=== PATIENT | male | born 1940 | race Caucasian/White ===

== ENCOUNTER 2018-03-17 11:55 | Observation (INO) | payer MEDICARE ==
[~2018-03-17] VITALS: Ht 180.3 cm; Wt 75.6 kg
[~2018-03-17 11:55] MED LIST: ACET325T14 PO; APIX5TAB PO
[2018-03-17] MEDS: SODIUM CHLORIDE 0.9% 1,000 ML IV SCH ×2 (13:51→21:51)
[2018-03-17 14:27] LABS: BASOPHILS # (AUTO) 0.03 x10^3/uL (0-0.1); BASOPHILS % (AUTO) 0 % (0-1); EOSINOPHILS # (AUTO) 0.17 x10^3/uL (0-0.4); EOSINOPHILS % (AUTO) 2 % (1-7); LYMPHOCYTES # (AUTO) 2.48 x10^3/uL (1-3.4); LYMPHOCYTES % (AUTO) 32 % (22-44); MD NO; MEAN CORPUSCULAR HEMOGLOBIN 31.5 pg (27.5-34.5); MEAN CORPUSCULAR HGB CONC 34.3 g/dL (33.2-36.2); MEAN CORPUSCULAR VOLUME 91.9 fL (81-97); MEAN PLATELET VOLUME 7.9 fL (7.4-10.4); MONOCYTES # (AUTO) 0.56 x10^3/uL (0.2-0.8); MONOCYTES % (AUTO) 7 % (2-9); NEUTROPHILS # (AUTO) 4.63 x10^3/uL (1.8-6.8); NEUTROPHILS % (AUTO) 59 % (42-75); PLATELET COUNT 194 x10^3/uL (130-400); RED BLOOD COUNT 5.33 x10^6/uL (4.38-5.82); RED CELL DISTRIBUTION WIDTH 12.9 % (9.4-14.8)
[2018-03-17 14:32] VITALS: BP 141/83
[2018-03-17 14:34] LABS: ANION GAP 2 mmol/L (5-15); CALCIUM 9.2 mg/dL (8.5-10.1); CHLORIDE 104 mmol/L (98-107); CREATININE 1.06 mg/dL (0.7-1.3)
[2018-03-17] MEDS ORDERED: No medications (14:36)
[2018-03-17] MEDS ORDERED: CEFAZOLIN 1,000 MG ONE (14:49)
[2018-03-17] MEDS ORDERED: LIDOCAINE/PF 1%, 30ML ONE (14:49)
[2018-03-17] MEDS ORDERED: MIDAZOLAM 1 MG/ML, 2ML ONE ×2 (14:49→14:58)
[2018-03-17] MEDS ORDERED: CEFAZOLIN PMX 1GM/50ML 50 ML ONE (14:49)
[2018-03-17] MEDS ORDERED: FENTANYL PF 100 MCG/2ML ONE (14:49)
[2018-03-17] MEDS ORDERED: CEFAZOLIN PMX 1GM/50ML 50 ML IVPB ONE (15:30)
[2018-03-17] MEDS ORDERED: ACETAMINOPHEN 325 MG TABLET PO PRN (16:30)
[2018-03-17 20:00] VITALS: BP 143/77
[2018-03-17] MEDS: SODIUM CHLORIDE FLUSH 10ML SYR IVF SCH (21:11)
[2018-03-17] MEDS: CEFAZOLIN PMX 1GM/50ML 50 ML IVPB SCH (23:36)
[2018-03-18 04:16] VITALS: BP 146/82
[2018-03-18] MEDS: SODIUM CHLORIDE 0.9% 1,000 ML IV SCH (04:53)
[2018-03-18] MEDS: CEFAZOLIN PMX 1GM/50ML 50 ML IVPB SCH (06:46)
[2018-03-18 07:19] VITALS: BP 143/70
[2018-03-18] MEDS: SODIUM CHLORIDE FLUSH 10ML SYR IVF SCH (09:00)
[2018-03-18] MEDS ORDERED: ACET325T14 PO (10:20)
== END 2018-03-18 11:14 | disposition home or self-care (01) ==
LOC: CACL 11:55 → ORIP 16:17 → 5SO 16:26 → DCLOUNGE 03-18 11:06
PROVIDERS: ADMIT Internal Medicine Cardiovascular Disease; ATTEND Internal Medicine Cardiovascular Disease
DX: I49.5 Sick sinus syndrome (principal); R00.1 Bradycardia, unspecified; I45.3 Trifascicular block; I46.9 Cardiac arrest, cause unspecified
CPT/HCPCS: 33208; 36415; 71045; 80048; 85025; 96365; 96375; 99156; C1779; C1785; C1892; G0378; J0690; J2250; J3010; J3490; Q9967; 36005